=== PATIENT | female | born 1970 | race Hispanic/Latino ===

== ENCOUNTER → 2016-08-21 | Outpatient (CLI) | payer OTHER, SELFPAY ==
--- NOTE | 2016-08-23 14:01 | MRI ---
EXAM DESCRIPTION: Lumbar Spine w/o Contrast CLINICAL HISTORY: BACK PAIN. Pain radiates to both hips and legs. COMPARISON: None. TECHNIQUE: Multiplanar, multisequence MRI of the lumbar spine was performed without contrast. FINDINGS: GENERAL Lumbar vertebral bodies show normal height without compression deformity. Normal alignment of the lumbar spine is seen. 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 Mild increased signal on STIR weighted images is seen in the pedicles left greater than right at L5. Small Schmorl's nodes are seen from T11 through L2. Mild anterior disc bulging and marginal endplate osteophytes from L1 through L5 are seen. Visualized intra-abdominal retroperitoneal structures are unremarkable. 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 L1-2 Mild disc desiccation with 2 to 3 mm broad-based disc bulge flattening the ventral surface of the thecal sac is seen. No significant spinal canal stenosis or foraminal encroachment is seen. L2-3 No significant findings. L3-4 Desiccation of the disc space without loss of disc space height. Minimal 2 mm broad-based disc bulge flattens the ventral surface of the thecal sac with mild bilateral facet hypertrophy. No significant spinal canal stenosis or foraminal encroachment. L4-5 Disc desiccation and mild disc space narrowing posteriorly. There is mild to moderate bilateral facet hypertrophic and degenerative change with ligamentum flavum thickening and 2 mm broad-based ventral ridging disc osteophyte complex flattening the ventral surface of the thecal sac contributing to mild spinal canal stenosis. The thecal sac measures 7 mm AP by 12 mm transverse. There is mild to moderate right and mild left foraminal encroachment with facet hypertrophy contacting the exiting right L4 nerve root in the superior aspect of the neural foramen. L5-S1 Mild bilateral facet hypertrophic and degenerative changes are seen with small right facet joint effusion. No significant spinal canal stenosis or foraminal encroachment is seen. IMPRESSION: Multifactorial mild spinal canal stenosis with mild to moderate right and mild left foraminal encroachment is seen at L4-5. Mild probable stress reactive marrow edema versus acute inflammation involving the pedicles at L5. Facet arthropathy is most prominent at L4-5. Electronically signed by: Edawrd Schafer MD 08/23/2016 1:59 PM CDT
== END | disposition home or self-care (01) ==
LOC: MRI 09:17
PROVIDERS: ATTEND Family Medicine
DX: M48.06 Spinal stenosis, lumbar region (principal)